=== PATIENT | female | born 1960 | race Hispanic/Latino ===

== ENCOUNTER 2024-11-07 03:09 | Emergency (ER) | payer OTHER, MEDICAID ==
[~2024-11-07] VITALS: Ht 165.1 cm; Wt 74.8 kg
[2024-11-07 03:43] LABS: IMMATURE GRANULOCYTE ABSOLUTE 0.04 K/uL (0-1); NUCLEATED RED BLOOD CELLS 0.0 % (0.0-0.19); PLATELET COUNT (AUTO) 339 K/uL (130-400); RED BLOOD CELL COUNT(AUTO) 3.99 MIL/uL (4.00-5.50); RED CELL DISTRIBUTION WIDTH 12.9 % (11.0-15.5); WHITE BLOOD COUNT (AUTO) 9.9 K/uL (4.8-10.8)
--- NOTE | 2024-11-07 03:44 | ERN ---
ED Note History of Present Illness Stated Complaint: CHEST PAIN, ABD PAIN Chief Complaint: Chest Pain Time Seen by MD: 03:19 Dictation: This is a 64-year-old female who presented to the emergency room with complaints of lower sternal pain as well as epigastric pain. This started since yesterday associated with nausea no diaphoresis syncope or palpitations. No vomitings diarrhea hematemesis or melena no constipation. No travel no fever chills or rigors. Patient's daughter reported that patient drinks excessive soda pop. Temperature 98.2 pulse 64 respirations 20 blood pressure 154/81 with a pulse oximetry of 96% on room air She has chronic history of seizure disorder and her last seizure was many many years ago Allergies: Coded Allergies: No Known Allergies (Unverified Allergy, Unknown, 11/07/24) Home Meds Active Scripts Nitrofurantoin Monohyd/M-Cryst (Macrobid 100 mg Capsule) 100 Mg Capsule, 1 CAP PO BID for 7 Days, #14 CAP 0 Refills Prov:VIRGINIA LIU MD 11/07/24 Past Medical History Past Medical History: Seizure Surgical History: None Family History: Negative Social History: Negative History: Not Applicable RN Note Reviewed/Agreed w/PFSH: Yes Review of System Dictation Constitutional: Negative for fever,chills, and weight loss Eyes: Negative for injury, pain,redness, and discharge ENT: Negative for injury,pain or swelling Cardiovascular: Positive for lower chest pain, denied palpitations, and edema Respiratory: Negative for shortness of breath, cough, and wheezing, Abdomen/GI: Positive for epigastric abdominal pain, nausea, denied vomiting, diarrhea, and constipation Back: Negative for injury and pain : Negative for injury, bleeding and discharge MS/Extremity: Negative for injury and deformity Skin: Negative for rash, and discoloration Neuro: Negative for headache, weakness, numbness, tingling, and seizure Psych: Negative for suicide ideation, homicidal ideation, and hallucinations Initial Vital Sign VS Vital Signs Date Time Temp Pulse Resp B/P (MAP) Pulse Ox O2 Delivery O2 Flow Rate FiO2 11/07/24 03:11 98.2 64 20 154/81 96 Room Air 11/07/24 03:45 0 21 Physical Exam Dictation General: awake, alert, NAD very pleasant Head/Face: Normocephalic, atraumatic Eyes: PERRL, EOMI, vision at baseline ENT: oral cavity clear, TMs clear, no signs of infection poor dentition and multiple missing teeth Neck: Trachea midline, supple, no nuchal rigidity Cardiovascular: RRR, normal S1/S2, No MRGs, no JVD Respiratory: CTAB, no respiratory distress, No rales or wheezes Abdomen: Soft, non-tender, non-distended, normal bowel sounds, no guarding or rebound. Skin: Warm, dry, normal turgor, no rash MS/Extremity: Pulses equal, no cyanosis, neurovascular intact, FROM Neuro: COAx4, GCS 15, strength 5/5, CN 2-12 intact, normal cerebellar exam, normal gait, Psych: Normal behavior, mood, and affect normal Extremities-trace edema without any palpable cords, Homans sign is negative Results (Laboratory/Radiology) Laboratory/Radiology Laboratory Tests Test 11/07/24 03:31 11/07/24 03:42 White Blood Count 9.9 K/uL (4.8-10.8) Red Blood Count 3.99 MIL/uL (4.00-5.50) L Hemoglobin 12.5 g/dL (12.0-16.0) Hematocrit 36.9 % (36-48) Mean Corpuscular Volume 92.5 fL (79-99) Mean Corpuscular Hemoglobin 31.3 pg (27.0-33.0) Mean Corpuscular Hemoglobin Concent 33.9 g/dL (32.0-36.0) Red Cell Distribution Width 12.9 % (11.0-15.5) Platelet Count 339 K/uL (130-400) Mean Platelet Volume 10.3 fL (7.5-10.5) Immature Granulocyte % (Auto) 0.4 % (0-1) Neutrophils (%) (Auto) 58.2 % (40.0-77.0) Lymphocytes (%) (Auto) 28.6 % (21.0-51.0) Monocytes (%) (Auto) 9.1 % (3.0-13.0) Eosinophils (%) (Auto) 2.7 % (0.0-8.0) Basophils (%) (Auto) 1.0 % (0.0-5.0) Neutrophils # (Auto) 5.7 K/uL (1.8-7.7) Lymphocytes # (Auto) 2.8 K/uL (1.0-4.8) Monocytes # (Auto) 0.9 K/uL (0.1-1.0) Eosinophils # (Auto) 0.27 K/uL (0.00-0.70) Basophils # (Auto) 0.10 K/uL (0.00-0.20) Absolute Immature Granulocyte (auto 0.04 K/uL (0-1) Nucleated Red Blood Cells 0.0 % (0.0-0.19) Sodium Level 142 mmol/L (136-145) Potassium Level 3.4 mmol/L (3.5-5.1) L Chloride Level 106 mmol/L (101-111) Carbon Dioxide Level 27 mmol/L (21-32) Blood Urea Nitrogen 20 mg/dL (7-18) H Creatinine 0.8 mg/dL (0.5-1.0) Glomerular Filtration Rate Calc 83 mL/min (>90) Random Glucose 100 mg/dL (70-105) Total Calcium 8.7 mg/dL (8.5-10.1) Total Creatine Kinase 142 U/L (21-232) Troponin I High Sensitivity 6 ng/L (4-50) Urine Color LIGHT-YELLOW (YELLOW) Urine Appearance CLOUDY (CLEAR) H Urine pH 5.5 (5.0-8.0) Urine Specific Thompson 1.027 (1.001-1.031) Urine Protein 10 mg/dL (NEGATIVE) H Urine Glucose (UA) NEGATIVE mg/dL (NEGATIVE) Urine Ketones NEGATIVE mg/dL (NEGATIVE) Urine Occult Blood +- (TRACE) (NEGATIVE) H Urine Nitrate NEGATIVE (NEGATIVE) Urine Bilirubin NEGATIVE mg/dL (NEGATIVE) Urine Urobilinogen 0.2 mg/dL (0.2-1.0) Urine Leukocyte Esterase 500 Katrina/uL (NEGATIVE) H Urine RBC 2-5 /HPF (0-1) H Urine WBC 2-5 /HPF (0-1) H Urine Squamous Epithelial Cells FEW /HPF (0-2) Urine Bacteria MOD /HPF (None Seen) Urine Hyaline Casts 2-5 /LPF (0-1 /LPF) H Labs Reviewed?: Yes ED Course ED Course Orders Procedure Category Date Status Time Vital Signs Per CPOE 11/07/24 Transmitted Routine 03:11 Chest 1vw RAD 11/07/24 Resulted 03:11 12 Lead Ekg Tracing- EKG 11/07/24 Logged Technical 03:11 Oxygen By Nc/Pulse Ox CPOE 11/07/24 Transmitted 03:11 Maintain Iv CPOE 11/07/24 Transmitted 03:11 Iv Insertion CPOE 11/07/24 Transmitted 03:11 Cardiac Monitoring CPOE 11/07/24 Transmitted 03:11 Pulse Oximetry With CPOE 11/07/24 Transmitted Vs And Prn 03:11 Cbc With Differential LAB 11/07/24 Complete 03:11 Activity: Br W/Brp CPOE 11/07/24 Transmitted With Assist 03:11 Creatine Kinase, Total LAB 11/07/24 Complete 03:11 Troponin I High LAB 11/07/24 Complete Sensitivity 03:11 Urinalysis Profile LAB 11/07/24 Complete 03:11 Basic Metabolic Panel LAB 11/07/24 Complete 03:11 Ketorolac PHA 11/07/24 Complete Tromethamine 15mg/Ml 04:00 Ondansetron 4mg Inj PHA 11/07/24 Complete (Zofran 4mg Inj) 04:00 Lidocaine Hcl 2% PHA 11/07/24 Complete Viscous (Lidocaine Hcl 04:00 Mag/Alum/Simeth 30ml PHA 11/07/24 Complete (Maalox Plus 30ml) 04:00 Dicyclomine Hcl PHA 11/07/24 Complete (Bentyl 10mg/5ml 04:00 Culture Urine FARA 11/07/24 In Process 04:07 Ceftriaxone 1g Vial PHA 11/07/24 Complete (Rocephine 1g Inj) 05:00 Current Medications Medications (Trade) Dose Ordered Sig/Tylor Route PRN Reason Start Time Stop Time Status Last Admin Dose Admin Al Hydroxide/Mg Hydroxide (MAALox PLUS 30ML) 30 ml ONCE ONCE PO 11/07/24 04:00 11/07/24 04:01 DC 11/07/24 04:12 Ceftriaxone Sodium (ROCEphine 1G INJ) 1 gm ONCE ONCE IVPB 11/07/24 05:00 11/07/24 05:02 DC 11/07/24 05:03 Dicyclomine HCl (Bentyl 10mg/5ml Syrup) 10 mg ONCE ONCE PO 11/07/24 04:00 11/07/24 04:01 DC 11/07/24 04:13 Ketorolac Tromethamine (toRADol) 15 mg ONCE ONCE IV 11/07/24 04:00 11/07/24 04:01 DC 11/07/24 04:13 Lidocaine HCl (Lidocaine HCl 2% Viscous) 10 ml ONCE ONCE PO 11/07/24 04:00 11/07/24 04:01 DC 11/07/24 04:12 Ondansetron HCl (zoFRAN 4MG INJ) 4 mg ONCE ONCE IVP 11/07/24 04:00 11/07/24 04:01 DC 11/07/24 04:13 Vital Signs Date Time Temp Pulse Resp B/P (MAP) Pulse Ox O2 Delivery O2 Flow Rate FiO2 11/07/24 03:45 98.1 68 17 148/76 97 Room Air* 0 21 11/07/24 03:11 98.2 64 20 154/81 96 Room Air We will perform diagnostic labs, advanced imaging and administer medications according to the patient's complaint. Once the results are available, will review and personally interpreted the labs to rule out any acute life-threaten ing emergency the trach require immediate intervention and treatment. I will then re-evaluate the patient after treatment and diagnostic exams have return to determine whether the patient requires any further testing, can safely be discharged home or need further admission to hospital for additional treatment and evaluation. Labs reviewed CBC shows a hemoglobin of 12.5 otherwise negative. BNP 7 is significant for a potassium of 3.2 BUN and creatinine are 20 and 0.8. Chest x- ray is rotated film but no acute abnormality noted. Troponins are negative. 5:20 a.m. patient responded to symptomatic treatment for the epigastric pain. Urinalysis was abnormal with a high leuko esterase and positive bacteria. I updated the patient and her daughter on all the labs and chest x-ray results and plans to give her a dose of antibiotic . We will discharge her to follow up with her primary care physician . HEART Score Response (Comments) Value History: Low suspicion (0) 0 EKG: Normal 0 Age: 45-65yrs (+1) 1 Risk Factors: No known risk factors (0) 0 Initial Troponin: Normal limit (0) 0 HEART Score Risk: Low Risk for MACE (1-3) Total 1 Medical Decision Making MDM Differential diagnosis: Esophagitis, gastritis, gastroesophageal reflux disease, peptic ulcer disease, dyspepsia, biliary colic Rationale: Tests considered and ordered secondary to shared decision making include: Previous outside records reviewed: Old ER visits. Risk of complication and/or morbidity or mortality of patient management: None Medications-Per medication reconciliation Need for hospitalization: Patient does not meet criteria for hospitalization. Need for emergency major/minor surgery: No There are no social concerns with this patient. Prescription drug management Prescriptions will include symptomatic care Patient's prior external medical records from other ER visits were reviewed by me as indicated. Prior testing and results from previous visits were reviewed. Prior tests were taken into account with medical decision making and resource utilization, independent historian/historians were used to obtain complete medical history. I independently interpreted the test that were performed, results were reviewed by me and considered findings on radiology if ordered. Medical management and examination interpretation discussions were had by me with other qualified healthcare professionals as indicated for the patient's care. Problem List Problem List: (1) Gastritis (2) Gastroesophageal reflux disease (3) Hypokalemia (4) UTI (urinary tract infection) (5) Acute kidney injury DX & DISP Disposition: Discharge Departure Impression: Primary Impression: Gastritis Additional Impressions: Gastroesophageal reflux disease, UTI (urinary tract infection), Hypokalemia, Acute kidney injury Condition: Stable Scripts Nitrofurantoin Monohyd/M-Cryst (Macrobid 100 mg Capsule) 100 Mg Capsule 1 CAP PO BID for 7 Days, #14 CAP 0 Refills Prov: VIRGINIA LIU MD 11/07/24 Additional Instructions: Patient and the caregiver have been informed of all the diagnostic tests and the imaging conducted during the today's visit to the emergency room and has verbalized understanding of the results I have personally reviewed and interpreted all diagnostic exams performed here in the ER today as well as the vital signs documented by the nursing staff. The patient is now being discharged to home and should follow up with the primary care physician or the specialist as directed by the ER staff. Follow-up with primary care provider in 1 to 2 days. Take medications as directed here in the emergency room. Okay to continue home medications unless otherwise discussed during your visit in the emergency room today. Return to your nearest emergency room if symptoms worsen or if there is no improvement. Call 911 if you need immediate assistance. Take Tylenol or Motrin [id number] as needed and if no contraindications are present. Increase oral hydration. A wound culture or urine culture was ordered here in the emergency room department please follow-up with primary care provider and advise them to get repeat ports from our facility. If you had any Vazquez wrap/splints that were applied here, please do not remove them until you see your primary care or specialty. Referrals: SIVAN TREVINO MD (PCP) VIRGINIA LIU MD Nov 07, 2024 03:44
--- NOTE | 2024-11-07 03:48 | HMCIMG ---
EXAM: CR Chest, 1 view CLINICAL HISTORY: Chest pain. COMPARISON: None provided. FINDINGS: The lungs show no infiltrates or other acute findings. No pleural effusion or pneumothorax. The cardiomediastinal silhouette is within normal limits. No acute osseous abnormality. IMPRESSION: No acute cardiopulmonary process is evident. /[place]
[2024-11-07 03:49] LABS: APPEARANCE,URINE CLOUDY (CLEAR); GLUCOSE, URINE (UA) NEGATIVE (NEGATIVE); LEUKOCYTE ESTERASE ,URINE 500 Leu/uL (NEGATIVE); NITRATE,URINE NEGATIVE (NEGATIVE); OCCULT BLOOD,URINE +- (TRACE) (NEGATIVE)
[2024-11-07 03:54] LABS: CREATININE 0.8 mg/dL (0.5-1.0); GLOMERULAR FILTR. RATE CALC 83.0 mL/min (>90); GLUCOSE,RANDOM 100.0 mg/dL (70-105); SODIUM SERUM 142.0 mmol/L (136-145); UREA NITROGEN, BLOOD 20.0 mg/dL (7-18)
[2024-11-07 03:58] LABS: CREATINE KINASE, TOTAL 142.0 U/L (21-232)
[2024-11-07 04:07] LABS: ADD UA MICROSCOPIC YES
[2024-11-07 04:08] LABS: SQUAMOUS EPITHELIAL CELL,UR FEW /HPF (0-2)
[2024-11-07] MEDS: LIDOCAINE HCL 2% VISCOUS 15 ML UDCUP PO ONE (04:12)
[2024-11-07] MEDS: MAG/ALUM/SIMETH 30 ML UDCUP PO ONE (04:12)
[2024-11-07] MEDS: DICYCLOMINE HCL 10 MG/5 ML ML PO ONE (04:13)
[2024-11-07] MEDS ORDERED: NITR100C4 PO (05:20)
[2024-11-07 05:31] VITALS: BP 154/81; PULSE 60; RESP 17; TEMP 98.4; O2SAT 96
--- NOTE | 2024-11-07 07:38 | EKG ---
[facility] Test Date: 2024-11-07 Test Time: 03:16:16 Pat Name: MAGALY SIN Department: ED Room: Gender: F Compensation/Benefits Specialist: [id number] : 1960 Requested By: VIRGINIA LIU Order Number: [id number] Reading MD: Fabio López Measurements Intervals [place] Rate: 73 P: 45 CA: 171 QRS: 5 QRSD: 78 T: 27 QT: 392 QTc: 432 Interpretive Statements Sinus rhythm No previous ECG available for comparison Electronically Signed On 11-09-2024 23:57:30 CDT by Fabio López Please click the below link to view image of tracing.
== END 2024-11-07 05:45 | disposition home or self-care (01) ==
LOC: EDH 03:09
DX: K29.70 Gastritis, unspecified, without bleeding (principal); K21.9 Gastro-esophageal reflux disease without esophagitis; N39.0 Urinary tract infection, site not specified; E87.6 Hypokalemia; N17.9 Acute kidney failure, unspecified; Z79.899 Other long term (current) drug therapy
CPT/HCPCS: 99285; 96374; 71045; 96375; 82550; 84484; 80048; 85025; 87086 ×2; 87186; 81001; 36415; 93005; J1885; J0696; J2405